=== PATIENT | female | born 1970 | race Caucasian/White ===

== ENCOUNTER → 2018-12-02 16:28 | Outpatient (CLI) | payer BC, SELFPAY ==
[2018-12-02 15:39] VITALS: BMI 25.4
[2018-12-02 17:39] LABS: Absolute Lymphocyte Count 1.74 X10^3/uL (0.83-4.51); Basophil# 0.04 X10^3/uL; Basophil% 0.5 % (0-1); Eosinophil# 0.07 X10^3/uL; Eosinophils% 0.8 % (0-5); Hematocrit 37.7 % (37-47); Hemoglobin 12.6 g/dL (12.0-15.0); Lymphocyte # 1.74 X10^3/ul (4.0); Lymphocyte % 20.9 % (19-41); Mean Corp Hgb Conc 33.4 g/dL (32-36); Mean Corpuscular Hgb 29.2 pg (27.0-32.0); Mean Corpuscular Volume 87.3 fL (81-99); Monocyte# 0.45 X10^3/uL; Monocyte% 5.4 % (0-10); NRBC Flagged by Analyzer 0 % (0-5); Neutrophil # 5.99 X10^3/uL (2.7-7.7); Platelet Count 250 K/mm3 (150-450); RBC Distribution Width CV 12.2 % (11.6-14.6); RBC Distribution Width SD 39.4 fl (35.1-43.9); Red Blood Count 4.32 M/mm3 (4.2-5.4); White Blood Count 8.3 K/mm3 (4.4-11.0)
[2018-12-05 08:13] LABS: HPV APTIMA, High Risk Negative (Negative)
== END ==
PROVIDERS: Family Provider Student in an Organized Health Care Education/Training Program; PCP Student in an Organized Health Care Education/Training Program; Referring Provider Nurse Practitioner Women's Health; Visit Provider Nurse Practitioner Women's Health
DX: Z12.4 Encounter for screening for malignant neoplasm of cervix (principal); R53.83 Other fatigue
CPT/HCPCS: 36415; 84443; 85025; 87624; 88175; G0145

== ENCOUNTER → 2018-12-06 12:54 | Outpatient (CLI) | payer BC, SELFPAY ==
[2018-12-02 15:39] VITALS: BMI 25.4
--- NOTE | 2018-12-06 12:55 | BI_ITS ---
MAMMOGRAPHY - BILATERAL SCREENING REASON FOR EXAM: Female, 48 years old. Routine annual screening examination. PERTINENT HISTORY: Mother with breast cancer. Grandmother with breast cancer. Aunt with breast cancer. TECHNIQUE: Digital bilateral breast burke (3D mammographic acquisition) in the CC and MLO projections. 2-D mediolateral oblique (MLO) and craniocaudad (CC) views of both breasts were obtained. CAD: Full Field Digital Mammography with Computer Added Detection was performed. COMPARISON: None. Baseline examination. FINDINGS: Breast Composition: The breasts are heterogeneously dense, which may obscure small masses. There are no dominant masses or suspicious calcifications. Benign appearing bilateral axillary. No other significant abnormalities are identified. BI/SCREEN MAMM (CAD) W/BURKE BILAT IMPRESSION: Negative screening mammogram. Yearly followup mammogram recommended. (A) ASSESSMENT CATEGORY: BIRADS Category 2: Benign. A letter regarding these results will be sent to the patient by the facility within 30 days. Approximately 10% of breast cancers are not detected by mammography. A normal mammogram should not delay biopsy of a clinically suspicious abnormality. [id number] Electronically Signed: Gary Navarrete, at 14:20 EDT , Service support ,
== END ==
PROVIDERS: Family Provider Student in an Organized Health Care Education/Training Program; PCP Student in an Organized Health Care Education/Training Program; Referring Provider Nurse Practitioner Women's Health; Visit Provider Nurse Practitioner Women's Health
DX: Z12.31 Encounter for screening mammogram for malignant neoplasm of breast (principal); R53.83 Other fatigue; Z80.3 Family history of malignant neoplasm of breast
CPT/HCPCS: 77063; 77067

== ENCOUNTER → 2019-02-24 | Outpatient (CLI) | payer BC, SELFPAY ==
[2019-02-24 14:40] VITALS: BMI 26.0
--- NOTE | 2019-02-24 15:15 | EMB_PTH ---
PATIENT: JEREMIE HUFF LOC: [facility] U#:[id number] AGE/SX: 48/F ROOM: RE02/24/[address]: MACIE Velasquez : 1970 BED: DIS: 02/24/2019 SPEC #: [id number] RECD: 02/24/19 16:18 STATUS: YARELI RENikia #: [id number] ZHAO: 02/24/19 15:[address]: Leslie Zaragoza NP DEPT: SURGICAL PATHOLOGY RECD BY: Ramiro Terry ENTERED: 02/25/19 08:01 SP TYPE: ENDOM BX/C MICHELLE DR: Dr. Ramirez Ayala DO Tissues: Endometrium, NOS Procedures: Surgery Specimen Level IV HEADER OPERATION: Endometrial biopsy PRE-OP DIAGNOSIS: Thickened endometrial lining TISSUE SUBMITTED: Endometrial lining MICROSCOPIC DIAGNOSIS Endometrial biopsy: Proliferative endometrium. SJ:malick 02/26/19 MICROSCOPIC DESCRIPTION Slides are reviewed. GROSS DESCRIPTION Received is one container labeled with the patient's name and not further designated. The specimen consists of multiple fragments of mayen hemorrhagic soft tissue that in aggregate measure 3 x 2.5 x 0.3 cm. The specimen is totally submitted in one cassette. / SJ:malick 02/25/19 TC:4 CPT: 77233
== END | disposition home or self-care (01) ==
LOC: LABSPEC 16:39
PROVIDERS: Family Provider Student in an Organized Health Care Education/Training Program; PCP Student in an Organized Health Care Education/Training Program; Referring Provider Nurse Practitioner Women's Health; Visit Provider Nurse Practitioner Women's Health
DX: R93.89 Abnormal findings on diagnostic imaging of other specified body structures (principal)
CPT/HCPCS: 88305

== ENCOUNTER → 2020-06-10 09:27 | Outpatient (CLI) | payer BC, SELFPAY ==
[2020-06-07 15:19] VITALS: BMI 27.3
--- NOTE | 2020-06-10 09:29 | BI_ITS ---
MAMMOGRAPHY - BILATERAL DIAGNOSTIC REASON FOR EXAM: Female, 50 years old. LT BREAST LUMP FOUND BY PATIENT RT BREAST INCREASED DENSITY UPPER LATERAL BREAST PERTINENT HISTORY: FAM HX MOTHER AGE 30S, MAT GMA AGE 50S , 2 MAT GRT AUNTS, SEVERAL 2ND MAT COUSINS GAINED 10# NO SX LT MOLE MARKED TECHNIQUE: Digital bilateral breast jimenez (3D mammographic acquisition) in the CC and MLO projections. 2-D mediolateral oblique (MLO) and craniocaudad (CC) views of both breasts were obtained. CAD: Full Field Digital Mammography with Computer Added Detection was performed. COMPARISON: None. FINDINGS: Breast Composition: The breasts are heterogeneously dense, which may obscure small masses. There is an asymmetric density in the upper outer quadrant of the right breast for which further evaluation by ultrasound would be recommended. There are no suspicious calcifications. No definite abnormality is seen at the site of palpable mass in the left breast. Further evaluation by ultrasound of the left breast is also recommended No other significant abnormalities are identified. BI/DIAG MAMM W/CAD, BILAT IMPRESSION: Further ultrasonographic evaluation recommended, as described above. (I) ASSESSMENT CATEGORY: BIRADS Category 0: Incomplete. Need additional imaging evaluation. A letter regarding these results will be sent to the patient by the facility within 30 days. Approximately 10% of breast cancers are not detected by mammography. A normal mammogram should not delay biopsy of a clinically suspicious abnormality. Electronically Signed: Kerri Lamar MD at 13:41 EST Tel , Service support ,
--- NOTE | 2020-06-10 09:29 | US_ITS ---
STUDY: ULTRASOUND BREAST - RIGHT REASON FOR EXAM: Female, 50 years old. Palpable lump in the right breast. TECHNIQUE: Axial and longitudinal images of the RIGHT breast were performed with a high resolution ultrasound transducer. # OF IMAGES: 54 COMPARISON: Comparison is made with prior mammogram dated 06/10/2020. FINDINGS: RIGHT Breast: The mammographic asymmetry corresponds to 2 adjacent subcentimeter cysts at the 9 o''clock position of the breast. The largest cyst measures 7 mm x 8 mm x 4 mm. IMPRESSION: The mammographic asymmetric density corresponds to multiple small subcentimeter cysts. ASSESSMENT CATEGORY: BIRADS Category 2: Benign. A letter regarding these results will be sent to the patient by the facility within 30 days. Electronically Signed: Gary Navarrete MD at 12:48 EST , Service support , STUDY: ULTRASOUND BREAST - LEFT REASON FOR EXAM: Female, 50 years old. Palpable lump left breast. TECHNIQUE: Axial and longitudinal images of the LEFT breast were performed with a high resolution ultrasound transducer. # OF IMAGES: 54 COMPARISON: Comparison is made with prior mammogram dated 06/10/2020. FINDINGS: LEFT Breast: Multiple small cysts are seen at the 2 o''clock position of the breast. The largest cyst measures 8 mm x 8 mm x 4 mm. US/Breast Limited Unilateral IMPRESSION: Multiple small cysts are seen at the 2 o''clock position of the breast. ASSESSMENT CATEGORY: BIRADS Category 2: Benign. A letter regarding these results will be sent to the patient by the facility within 30 days. Electronically Signed: Gary Navarrete MD at 12:49 EST , Service support ,
== END ==
PROVIDERS: PCP Student in an Organized Health Care Education/Training Program; Referring Provider Nurse Practitioner Women's Health; Visit Provider Nurse Practitioner Women's Health
DX: N63.21 Unspecified lump in the left breast, upper outer quadrant (principal); N60.11 Diffuse cystic mastopathy of right breast
CPT/HCPCS: 76642; 77062; 77066; G0279

== ENCOUNTER → 2020-07-12 14:21 | Outpatient (CLI) | payer BC, SELFPAY ==
[2020-07-12 13:39] VITALS: BMI 27.6
[2020-07-12 14:37] LABS: Absolute Lymphocyte Count 1.61 X10^3/uL (0.83-4.51); Absolute Neutrophil Count 4.4 X10^3/uL (2.0-7.7); Basophil# 0.04 X10^3/uL; Basophil% 0.6 % (0-1); Eosinophil# 0.05 X10^3/uL; Eosinophils% 0.8 % (0-5); Hematocrit 39.7 % (37-47); Hemoglobin 12.8 g/dL (12.0-15.0); Lymphocyte # 1.61 X10^3/ul (4.0); Lymphocyte % 24.5 % (19-41); Mean Corp Hgb Conc 32.2 g/dL (32-36); Mean Corpuscular Hgb 28.5 pg (27.0-32.0); Mean Corpuscular Volume 88.4 fL (81-99); Mean Platelet Vol. 11.6 fl (6.2-12.0); Monocyte# 0.45 X10^3/uL; Monocyte% 6.8 % (0-10); NRBC Flagged by Analyzer 0 % (0-5); Neutrophil # 4.42 X10^3/uL (2.7-7.7); Neutrophil % 67.1 % (47-70); Platelet Count 201 K/mm3 (150-450); RBC Distribution Width CV 12.4 % (11.6-14.6); RBC Distribution Width SD 40.2 fl (35.1-43.9); Red Blood Count 4.49 M/mm3 (4.2-5.4); White Blood Count 6.6 K/mm3 (4.4-11.0)
[2020-07-12 14:58] LABS: AST(SGOT) 20 U/L (15-37); Alanine Aminotransfer ALT/SGPT 36 U/L (13-56); Albumin, Serum 3.8 g/dL (3.2-5.0); Alkaline Phosphatase 77 U/L (45-117); Anion Gap 6 (5-15); BUN 11 mg/dL (7-18); BUN/Creat Ratio 14.9 RATIO (10-20); Calcium,Total 9.5 mg/dL (8.5-10.1); Chloride 107 mmol/L (98-107); Creatinine, Serum 0.74 mg/dL (0.55-1.02); EST Glomerular Filtration Rate 88 mL/min (>60); Est Glom Filt Rate - Afr Amer 107 mL/min (>60); Globulin 3.7 g/dL (2.2-4.2); Glucose 101 mg/dL (74-106); Potassium 3.9 mmol/L (3.5-5.1); Protein, Total 7.5 g/dL (6.4-8.2); Sodium Level 140 mmol/L (136-145)
[2020-07-14 15:33] LABS: Cancer Antigen 125 27.7 U/mL (0.0-38.1); Carcinoembryonic Antigen 1.5 ng/mL (0.0-4.7)
== END ==
PROVIDERS: PCP Student in an Organized Health Care Education/Training Program; Referring Provider Obstetrics & Gynecology; Visit Provider Obstetrics & Gynecology
DX: R19.00 Intra-abdominal and pelvic swelling, mass and lump, unspecified site (principal); R10.2 Pelvic and perineal pain
CPT/HCPCS: 36415; 80053; 82378; 85025; 86304; 87077; 87086; 87088; 87186

== ENCOUNTER → 2020-07-20 12:24 | Outpatient (CLI) | payer BC, SELFPAY ==
[2020-07-12 13:39] VITALS: BMI 27.6
--- NOTE | 2020-07-20 12:26 | CT_ITS ---
STUDY: CT ABDOMEN AND PELVIS WITHOUT CONTRAST REASON FOR EXAM: Female, 50 years old. Abdominal mass. Right flank pain. RADIATION DOSAGE (If Supplied By Facility): CTDIvol = ( 8.24 ) mGy, DLP = ( 382.72 ) mGycm TECHNIQUE: Transaxial images were obtained from the dome of the diaphragm to the symphysis pubis without oral contrast, and without intravenous contrast. Sagittal and coronal images were reconstructed. Individualized dose optimization techniques were used for this CT. COMPARISON: None. FINDINGS: The visualized lung bases are unremarkable. The visualized portions of the heart are within normal limits. Normal liver. The gallbladder is contracted. Normal spleen. Normal pancreas. Normal bilateral adrenal glands. Normal right kidney. Normal left kidney. There is a small hiatal hernia. Normal small intestine. Normal colon. There are surgical clips in the region of the appendix consistent with a prior appendectomy. Normal abdominal aorta. Normal inferior vena cava. Normal retroperitoneum. Normal urinary bladder. Enlarged fibroid uterus. Normal abdominal wall. Normal osseous structures. CT/Abdomen/Pelvis without Cont IMPRESSION: Status post appendectomy. Enlarged fibroid uterus. Electronically Signed: Gary Navarrete MD at 13:34 EDT , Service support ,
== END ==
LOC: CT 12:25
PROVIDERS: PCP Student in an Organized Health Care Education/Training Program; Referring Provider Obstetrics & Gynecology; Visit Provider Obstetrics & Gynecology
DX: D25.9 Leiomyoma of uterus, unspecified (principal)
CPT/HCPCS: 74176

== ENCOUNTER 2020-12-30 03:35 | Emergency (ER) | payer BC, SELFPAY ==
[2020-12-30 03:36] VITALS: BP 131/69; PULSE 92; RESP 18; TEMP 36.3; O2SAT 95; BMI 26.4
--- NOTE | 2020-12-30 03:54 | EX.ED.DYSGE1 ---
HPI History of Present Illness Chief Complaint: General Illness Informant: patient and spouse/S.O. Onset/Context/Timing Onset: Days (8) Context: Gradual Onset Timing: Continuous Quality: weak and achy Location: all over Current Severity: Severe Maximum Severity: Severe Worsened by: nothing Relieved by: nothing Associated Symptoms Associated Symptoms: rhinorrhea, congestion, cough Associated Symptoms ED: cough Narrative Narrative: Patient has been feeling very poorly for the past 8 days. She was not vaccinated against Covid, and has had no contact with anyone with Covid that she knows of but presents during a significant uptick in the pandemic with the delta variant. She has had no dyspnea. She has had some diarrhea off and on, tonight she had some lower sharp and crampy abdominal pain followed by diarrhea and resolution of the pain. Denies any loss of taste or smell. Recent Illness/Hospitalization: No [facility] Medical History (Updated 12/30/20 @ 04:[address] Alonzo Schulz MD) Breast mass, left Migraines Home Medications albuterol sulfate 1 - 2 puff INHALATION Q4H PRN PRN #1 inhaler 06/14/16 [Rx Last Taken Unknown] multivitamin 1 tab PO DAILY 02/24/19 [History Last Taken Unknown] alprazolam 0.25 mg tablet 0.125 mg PO DAILY PRN #30 tab 07/15/20 [Rx Last Taken Unknown] Allergy/AdvReac Type Severity Reaction Status Date / Time Penicillins Allergy Swelling Verified 12/30/20 03:41 sulfamethoxazole Allergy Swelling Verified 12/30/20 03:41 [From Bactrim] trimethoprim [From Bactrim] Allergy Swelling Verified 12/30/20 03:41 duloxetine [From Cymbalta] AdvReac Severe difficulty Verified 12/30/20 03:41 breathing escitalopram [From Lexapro] AdvReac Severe anaphalxis Verified 12/30/20 03:41 sertraline [From Zoloft] AdvReac Severe anaphlaxis Verified 12/30/20 03:41 Iodinated Contrast Media AdvReac Unknown unknown Verified 12/30/20 03:41 levofloxacin [From Levaquin] AdvReac Unknown unknown Verified 12/30/20 03:41 moxifloxacin [From Avelox] AdvReac Unknown unknown Verified 12/30/20 03:41 tetracycline AdvReac Unknown unknown Verified 12/30/20 03:41 Family History Mother Cancer Leukemia Grandfather Diabetes Hypertension Heart disease Brother Myocardial infarction Hypertension History of high cholesterol Brother Bipolar 1 disorder Surgical History History of appendectomy Social History number of children: 3 current occupational status: unemployed Smoking Status: Never smoker alcohol intake: never substance use type: does not use seatbelt use: always do you feel safe at home: Yes additional social history: [employer] ROS ROS ED Constitutional Constitutional ED: Reports anorexia, body ache(s), chills, fatigue, headache(s) and malaise; Denies fever(s) Eyes Eyes: Denies change in vision or diplopia ENT ENT ED: Denies loss taste/smell, rhinorrhea or sore throat Cardiovascular Cardiovascular: Denies chest pain or palpitations Respiratory/Chest Respiratory/Chest: Reports cough; Denies dyspnea or dyspnea on exertion Gastrointestinal Gastrointestinal: Reports as per HPI, abdominal pain and diarrhea; Denies nausea or vomiting Genitourinary Genitourinary ED: Denies dysuria or hematuria Musculoskeletal Musculoskeletal: Reports myalgias; Denies back pain or neck pain Integumentary Denies abscess or rash Neurologic Neurologic: Reports headache(s); Denies paresthesias or weakness Psychiatric Psychiatric: Denies anxiety or suicidal thoughts EXAM Physical Exam Const Vital Signs: 12/30/20 03:36 Temperature 97.3 F L Temperature Source Temporal Pulse Rate 92 Respiratory Rate 18 Blood Pressure 131/69 H Blood Pressure Mean 89 Pulse Ox 95 Oxygen Delivery Method Room Air Positive well nourished and well developed Constitutional Narrative: Malaised-appearing, no distress General Appearance ED: well developed and NAD HEENT Reports moist mucous membranes normocephalic and atraumatic Eyes PERRL and EOMs intact bilaterally Neck full ROM and supple Resp normal respiratory effort and clear to auscultation bilaterally Cardio regular rate, regular rhythm and no murmurs Rate: Negative for tachycardic GI non-tender and non-distended Auscultation: normoactive bowel sounds Palpation: soft Back/Spine no CVA tenderness General Back: other FROM Extremity normal to inspection and no calf tenderness General Extremety ED: Negative for edema, pulses abnormal or tenderness General Extremity: Negative for edema or pulses abnormal Neuro oriented x3, CN's II-XII intact bilaterally and no sensory deficits noted Sensorium / Orientation: awake and alert Motor Exam: strength 5/5 throughout Skin no rashes or lesions noted and no wounds MDM MDM MDM Narrative Medical decision making narrative: Rapid Covid test was sent and is positive which I believe is a true positive. Her chest x-ray is normal on my interpretation, 1 view. She requested an IV for fluids, which was given to provide symptomatic treatment, in addition to IV Toradol, Reglan more for the headache than nausea. Her vital signs are stable, she is not hypoxic. She does not have dyspnea or chest pain except for some soreness in her ribs with coughing, I do not think she needs to be evaluated for pulmonary embolus at this time. I discussed checking her pulse oximetry at home and reasons to return. Since she does not have any signs of Covid pneumonia hopefully she will be able to ride this out without complications that would indicate hospitalization, which is not indicated now nor are steroids, and she does not meet criteria for monoclonal antibody infusion. Lab Data Attestation: I reviewed the patient's lab results. Radiography Chest X-Ray - ED: 1 View, Read by ED Physician, No Acute Disease and No Infiltrates Discharge Plan Triage Chief Complaint: General Illness ED Provider: Alonzo Schulz Dx/Rx/DC Orders Clinical Impression: COVID-19 Instructions: Coronavirus Disease 2019 (COVID-19): Caring for Yourself or Others Prescriptions: No Action multivitamin [Daily Multi-Vitamin] Tablet 1 tab PO DAILY RF: 0 albuterol sulfate 1 INHALER inhaler 1 - 2 puff inhalation Q4H PRN PRN (Reason: Wheezing) Qty: 1 RF: 0 alprazolam [Xanax] 0.25 mg tablet 0.125 mg PO DAILY PRN (Reason: anxiety) Qty: 30 RF: 0 Primary Care Provider: Ramirez Ayala Referrals: Ramirez Ayala DO [Primary Care Provider] - As Needed Activity Restrictions/Additional Instructions: Try to get a home portable pulse oximeter and closely watch her oxygen levels periodically. If you stay below 90% for more than a minute or so, and/or you are feeling like your breathing is getting worse, return to the emergency department for further evaluation. Disposition Disposition: Home, Self Care
[2020-12-30] MEDS: 0.9% Normal Saline 1,000 ML 999 ML IV (03:59)
[2020-12-30] MEDS: Metoclopramide 10 MG/2 ML Vial 5 MG IV (03:59)
[2020-12-30] MEDS: Ketorolac 30 MG/ML Syringe IV (04:02)
--- NOTE | 2020-12-30 04:03 | RAD_ITS ---
STUDY: X-RAY CHEST REASON FOR EXAM: Female, 50 years old. cough TECHNIQUE: Single frontal view of the chest. COMPARISON: None. FINDINGS: There is no pneumothorax or pleural effusion. Vague opacity LEFT lower lung zone. Normal size heart. Normal mediastinum and soraida. Normal visualized pulmonary arteries. Normal visualized aortic arch and descending thoracic aorta. Normal visualized thoracic spine. Normal visualized ribs, clavicles, and shoulders. There is no demonstrated abnormality of the visualized soft tissue structures of the upper abdomen. RAD/Chest 1 View (Portable) IMPRESSION: Vague opacity LEFT lower lung zone. This could represent infectious inflammatory process. Underlying mass cannot be totally excluded. Overlying summation of shadows could also be considered. This can be further evaluated with dedicated PA and lateral radiograph the chest versus follow-up CT scan. Electronically Signed: Bruno Tucker MD at 4:35 EDT Tel , Service support ,
[2020-12-30 04:57] VITALS: BP 130/67; PULSE 88; RESP 18; O2SAT 95
== END 2020-12-30 04:57 | disposition home or self-care (01) ==
LOC: ED 04:52
PROVIDERS: Emergency Provider Emergency Medicine; PCP Student in an Organized Health Care Education/Training Program
DX: U07.1 COVID-19 (principal); Z79.899 Other long term (current) drug therapy
CPT/HCPCS: 71045; 87426; 96374; 96375; 99282; J7030; A4216

== ENCOUNTER → 2021-09-13 | Outpatient (CLI) | payer BC, SELFPAY ==
--- NOTE | 2021-09-13 16:14 | BI_ITS ---
MAMMOGRAPHY - BILATERAL SCREENING REASON FOR EXAM: Female, 51 years old. Routine annual screening examination. PERTINENT HISTORY: Mother with breast cancer. Grandmother with breast cancer. TECHNIQUE: Digital bilateral breast burke (3D mammographic acquisition) in the CC and MLO projections. 2-D mediolateral oblique (MLO) and craniocaudad (CC) views of both breasts were obtained. CAD: Full Field Digital Mammography with Computer Added Detection was performed. COMPARISON: Comparison is made with prior examination dated 12/06/2018 and 06/10/2020. FINDINGS: Breast Composition: The breasts are heterogeneously dense, which may obscure small masses. There are no dominant masses or suspicious calcifications. No other significant abnormalities are identified. There has been no significant change since the prior study. BI/SCRN MAMM (CAD)W/BURKE BILAT IMPRESSION: Stable bilateral screening mammogram. Yearly follow-up mammogram recommended. (A) ASSESSMENT CATEGORY: BIRADS Category 1: Negative. A letter regarding these results will be sent to the patient by the facility within 30 days. Approximately 10% of breast cancers are not detected by mammography. A normal mammogram should not delay biopsy of a clinically suspicious abnormality. [id number] Electronically Signed: Gary Navarrete MD at 8:20 EDT ,
== END | disposition home or self-care (01) ==
LOC: OPBI 09-14 06:57
PROVIDERS: PCP Student in an Organized Health Care Education/Training Program; Visit Provider Surgery
DX: Z12.31 Encounter for screening mammogram for malignant neoplasm of breast (principal); Z80.3 Family history of malignant neoplasm of breast
CPT/HCPCS: 77063; 77067

== ENCOUNTER 2023-03-08 18:26 | Emergency (ER) | payer BC, SELFPAY ==
[2023-03-08 18:28] VITALS: BP 127/75; PULSE 71; RESP 18; TEMP 35.8; O2SAT 99; BMI 26.4
== END 2023-03-08 18:35 | disposition left against medical advice (07) ==
LOC: ED 19:11
PROVIDERS: PCP Student in an Organized Health Care Education/Training Program
DX: R69 Illness, unspecified (principal); Z53.21 Procedure and treatment not carried out due to patient leaving prior to being seen by health care provider

== ENCOUNTER → 2023-03-08 | Outpatient (CLI) | payer BC, SELFPAY ==
--- NOTE | 2023-03-08 17:53 | US_ITS ---
INDICATION: AUB EXAMINATION: US Pelvis Non OB Complete With Transvaginal Imaging TECHNIQUE: Transabdominal and transvaginal pelvic ultrasound was performed. Grayscale, spectral waveform, and color flow Doppler evaluation of the adnexa. COMPARISON: None. FINDINGS: UTERUS: Anteverted. The uterus measures 9.3 x 6.7 x 5.6 cm. There are multiple uterine fibroids. The endometrial stripe measures 1.3 cm in AP diameter which is within normal limits. There are multiple nabothian cysts. RIGHT OVARY: Measures 2.2 x 1.8 x 1 cm. Non-enlarged, normal echogenicity. There is normal arterial inflow and venous outflow present in the right ovary. LEFT OVARY: Not visualized. FREE FLUID: None. 7 mm anechoic well-circumscribed cyst posterior to the cervix. US/Pelvic w/ Transvaginal IMPRESSION: Multi fibroid uterus. 7 mm anechoic well-circumscribed cyst posterior to the cervix of unknown etiology. Electronically Signed: Souleymane Hutson MD at 21:29 EST ,
== END | disposition home or self-care (01) ==
LOC: US 17:51
PROVIDERS: PCP Student in an Organized Health Care Education/Training Program; Referring Provider Obstetrics & Gynecology; Visit Provider Obstetrics & Gynecology
DX: N93.9 Abnormal uterine and vaginal bleeding, unspecified (principal)
CPT/HCPCS: 76830; 76856

== ENCOUNTER → 2023-03-13 | Outpatient (CLI) | payer BC, SELFPAY ==
[2023-03-13 17:09] LABS: Absolute Lymphocyte Count 2.04 X10^3/uL (0.83-4.51); Absolute Neutrophil Count 4.1 X10^3/uL (2.0-7.7); Basophil# 0.04 X10^3/uL; Basophil% 0.6 % (0-1); Eosinophils% 1.5 % (0-5); Hematocrit 35.7 % (37-47); Hemoglobin 11.5 g/dL (12.0-15.0); Lymphocyte # 2.04 X10^3/ul (0.83-4.51); Lymphocyte % 30.3 % (19-41); Mean Corp Hgb Conc 32.2 g/dL (32-36); Mean Corpuscular Hgb 28.8 pg (27.0-32.0); Mean Corpuscular Volume 89.3 fL (81-99); Mean Platelet Vol. 11.8 fl (6.2-12.0); Monocyte# 0.47 X10^3/uL; NRBC Flagged by Analyzer 0 % (0-5); Neutrophil # 4.06 X10^3/uL (2.7-7.7); Neutrophil % 60.3 % (47-70); Platelet Count 243 K/mm3 (150-450); RBC Distribution Width CV 12.7 % (11.6-14.6); RBC Distribution Width SD 42.1 fl (35.1-43.9); White Blood Count 6.7 K/mm3 (4.4-11.0)
== END | disposition home or self-care (01) ==
LOC: LAB 16:15
PROVIDERS: Nurse Practitioner Women's Health; PCP Student in an Organized Health Care Education/Training Program; Visit Provider Obstetrics & Gynecology
DX: N92.0 Excessive and frequent menstruation with regular cycle (principal)
CPT/HCPCS: 36415; 85025

== ENCOUNTER 2023-09-07 20:00 | Emergency (ER) | payer BC, SELFPAY ==
[2023-09-07 20:02] VITALS: BP 148/68; PULSE 101; RESP 16; TEMP 36.6; O2SAT 96; BMI 27.6
[2023-09-07 22:01] VITALS: BP 136/88; PULSE 95; RESP 16; O2SAT 98
--- NOTE | 2023-09-07 22:13 | US_ITS ---
EXAM: US PELVIS TRANSVAGINAL CLINICAL INDICATION: menorhagia TECHNIQUE: Transvaginal pelvic ultrasound was performed with grayscale and color Doppler imaging. Transvaginal imaging was used for better evaluation of the endometrium and adnexa. COMPARISON: No relevant prior studies available. FINDINGS: UTERUS/CERVIX: Uterus measures 9.7 x 7.2 x 6.9 cm with endometrial complex thickness of 11 mm. Anteverted uterus with no uterine masses. There is a myometrial uterine fibroid identified measuring up to 4.1 cm. Nabothian cysts are identified. No IUD identified. RIGHT OVARY: Bilateral ovaries are not visualized. LEFT OVARY: See above. FREE FLUID: No adnexal masses or free fluid. BLADDER: Empty bladder which cannot be evaluated with this probe. US/Transvaginal Non- IMPRESSION: 1. Fibroid uterus. 2. Ovaries are not visualized. 3. No adnexal masses or free fluid. Electronically Signed: Mane Maria MD at 0:33 EDT ,
--- NOTE | 2023-09-07 22:17 | EDS_ITS ---
HPI History of Present Illness Chief Complaint: Abd Pain Informant: patient Onset/Context/Timing Onset: Today Narrative Narrative: Patient presents secondary to heavy vaginal bleeding and severe cramping. She is a history of fibroid uterus and over the past several months has had heavier periods, although patient states she never had pain like today. She was seen at [facility] emergency room in [place] earlier today. She complained of some URI symptoms for the past 2 days and they diagnosed her with a sinus infection, giving her doxycycline and Bentyl for abdominal pain. Patient states her pain is not controlled. She follows with Dr. Wilson for her [employer] care. 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 [facility] Medical History (Updated 09/08/23 @ 01:[address] Dorothea Bess MD) Abdominal mass Acid reflux Anxiety Breast mass, left Migraines Home Medications albuterol sulfate 90 mcg/actuation aerosol inhaler 1 - 2 puff inhalation Q4H PRN PRN Wheezing ##1 06/14/16 [Rx Last Taken Unknown] multivitamin (Daily Multi-Vitamin tablet) 1 tab PO DAILY 02/24/19 [History Last Taken Unknown] alprazolam 0.25 mg tablet (Xanax) 0.125 mg (1/2 x 0.25 mg) PO DAILY PRN anxiety #30 tabs 07/15/20 [Rx Last Taken Unknown] hydrocodone-acetaminophen 5-325mg 5mg-325mg 1 tab PO Q6H PRN PRN Pain 3 days #10 TABLETS 09/08/23 [Rx Last Taken Unknown] Allergy/AdvReac Type Severity Reaction Status Date / Time Penicillins Allergy Swelling Verified 09/07/23 20:05 prednisone Allergy Hives Verified 09/07/23 20:05 sulfamethoxazole Allergy Swelling Verified 09/07/23 20:05 [From Bactrim] trimethoprim [From Bactrim] Allergy Swelling Verified 09/07/23 20:05 duloxetine [From Cymbalta] AdvReac Severe difficulty Verified 09/07/23 20:05 breathing escitalopram [From Lexapro] AdvReac Severe anaphalxis Verified 09/07/23 20:05 sertraline [From Zoloft] AdvReac Severe anaphlaxis Verified 09/07/23 20:05 Iodinated Contrast Media AdvReac Unknown unknown Verified 09/07/23 20:05 levofloxacin [From Levaquin] AdvReac Unknown unknown Verified 09/07/23 20:05 moxifloxacin [From Avelox] AdvReac Unknown unknown Verified 09/07/23 20:05 tetracycline AdvReac Unknown unknown Verified 09/07/23 20:05 Family History Mother Cancer Leukemia Grandfather Diabetes Hypertension Heart disease Brother Myocardial infarction Hypertension History of high cholesterol Brother Bipolar 1 disorder Surgical History History of appendectomy Social History number of children: 3 current occupational status: unemployed Smoking Status: Never smoker alcohol intake: never substance use type: does not use seatbelt use: always do you feel safe at home: Yes additional social history: [employer] ROS ROS ED Constitutional Constitutional ED: Denies chills or fever(s) Eyes Eyes: Denies discharge from eye(s) ENT ENT ED: Reports rhinorrhea; Denies discharge from eye(s) or sore throat Cardiovascular Cardiovascular: Denies chest pain or palpitations Respiratory/Chest Respiratory/Chest: Denies cough or dyspnea Gastrointestinal Gastrointestinal: Reports abdominal pain; Denies diarrhea, nausea or vomiting Genitourinary Genitourinary ED: Reports urinary frequency; Denies dysuria Musculoskeletal Musculoskeletal: Denies back pain or extremity pain Integumentary Denies Abrasions or rash Neurologic Neurologic: Reports headache(s); Denies weakness Psychiatric Psychiatric: Denies anxiety or depression Allergic/Immunologic Allergic/Immunologic ED: Denies lip swelling or urticaria EXAM Physical Exam Const Vital Signs: 09/07/23 20:02 09/07/23 22:01 09/08/23 00:00 Temperature 98 F Temperature Source Temporal Pulse Rate 101 H 95 81 Respiratory Rate 16 16 16 Blood Pressure 148/68 H 136/88 H 133/86 H Blood Pressure Mean 94 104 101 Pulse Ox 96 98 98 Oxygen Delivery Method Room Air Room Air Room Air Positive well nourished and well developed General Appearance ED: well developed HEENT Reports moist mucous membranes Eyes EOMs intact bilaterally Chest Wall inspection of chest normal and palpation of chest normal Resp normal respiratory effort and clear to auscultation bilaterally Cardio regular rate and regular rhythm GI GI Narrative: Abdomen soft with mild tenderness in the lower abdomen. No guarding or rebound. Hypoactive but present bowel sounds noted throughout. Extremity normal to inspection Neuro oriented x3 and no sensory deficits noted Motor Exam: strength 5/5 throughout Psych mental status grossly normal Skin no rashes or lesions noted MDM MDM MDM Narrative Medical decision making narrative: IV fluid initiated with Toradol, Reglan, and Benadryl for her headache. She states this typically will help her abdominal cramping as well. Labwork obtained to evaluate for leukocytosis, anemia, and electrolyte derangement. Urinalysis obtained to evaluate for infection/hematuria. Pelvic ultrasound ob tained to evaluate uterine lining. History & Record Review Discussion w/independent historian: Patient Lab Data Attestation: I reviewed the patient's lab results. Labs: Laboratory Results - last 24 hr 09/07/23 23:08 WBC 6.2 RBC 3.99 L Hgb 11.3 L Hct 35.4 L MCV 88.7 MCH 28.3 MCHC 31.9 L RDW Std Deviation 41.4 RDW Coeff of Cosme 12.7 Plt Count 235 MPV 11.8 Immature Gran % (Auto) 0.200 Neut % (Auto) 69.3 Lymph % (Auto) 15.7 L Greer % (Auto) 13.4 H Eos % (Auto) 0.8 Baso % (Auto) 0.6 Absolute Neuts (auto) 4.3 Absolute Lymphs (auto) 0.97 Nucleated RBC % 0 Sodium 140 Potassium 3.6 Chloride 108 H Carbon Dioxide 28.0 Anion Gap 4 L BUN 10 Creatinine 0.58 Estim Creat Clear Calc 116.77 Est GFR (MDRD) Af Amer 139 Est GFR (MDRD) Non-Af 115 BUN/Creatinine Ratio 17.2 Glucose 106 Calcium 9.0 Serum , Qual NEGATIVE Radiography Diagnostic Testing: Clinical Impression(s) from Imaging Studies Transvaginal US 09/07/23 22:13 IMPRESSION: 1. Fibroid uterus. 2. Ovaries are not visualized. 3. No adnexal masses or free fluid. Electronically Signed: Mane Maria MD at 0:33 EDT , Treatment and Re-Evaluation :: CBC was a white count of 6.2 with a hemoglobin 11.3. She states her hemoglobin earlier today was 11.0. Chemistry studies are unremarkable. test is negative. Pelvic ultrasound reveals a fibroid uterus. Ovaries not visualized. No adnexal mass or free fluid. Her endometrial stripe today is 11 mm. On repeat evaluation she is resting more comfortably. I will write her a short course of [place] to have on hand. 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 Return instructions given. Discharge Plan Triage Chief Complaint: Abd Pain Other Complaint: Headache Vag Bleeding ED Provider: Dorothea Bess Dx/Rx/DC Orders Clinical Impression: Headache, Abdominal pain, Fibroid uterus, Menorrhagia Instructions: ED Headache Unspecified, ED Heavy Menstrual Bleeding, ED Uterine Fibroids Prescriptions: New hydrocodone-acetaminophen 5-325 mg tablet 1 tab PO Q6H PRN PRN (Reason: Pain) 3 Days Qty: 10 0RF No Action multivitamin [Daily Multi-Vitamin] Tablet 1 tab PO DAILY albuterol sulfate 1 INHALER inhaler 1 - 2 puff inhalation Q4H PRN PRN (Reason: Wheezing) Qty: 1 0RF alprazolam [Xanax] 0.25 mg tablet 0.125 mg PO DAILY PRN (Reason: anxiety) Qty: 30 0RF Primary Care Provider: Ramirez Ayala Referrals: Ramirez Ayala DO [Primary Care Provider] - Mariola Wilson MD [Med Staff - Active Staff] - As soon as possible Disposition Disposition: Home, Self Care
[2023-09-07] MEDS: Metoclopramide 10 MG/2 ML Vial IV (23:02)
[2023-09-07] MEDS: DiphenhydrAMINE 50 MG/ML Syringe 25 MG IV (23:02)
[2023-09-07] MEDS: Ketorolac 30 MG/ML Syringe IV (23:02)
[2023-09-07] MEDS: 0.9% Normal Saline (1000mL) 1,000 ML 1000 ML IV (23:03)
[2023-09-07 23:22] LABS: Absolute Lymphocyte Count 0.97 X10^3/uL (0.83-4.51); Absolute Neutrophil Count 4.3 X10^3/uL (2.0-7.7); Basophil# 0.04 X10^3/uL; Basophil% 0.6 % (0-1); Eosinophil# 0.05 X10^3/uL; Eosinophils% 0.8 % (0-5); Hematocrit 35.4 % (37-47); Hemoglobin 11.3 g/dL (12.0-15.0); Lymphocyte # 0.97 X10^3/ul (0.83-4.51); Lymphocyte % 15.7 % (19-41); Mean Corp Hgb Conc 31.9 g/dL (32-36); Mean Corpuscular Hgb 28.3 pg (27.0-32.0); Mean Corpuscular Volume 88.7 fL (81-99); Mean Platelet Vol. 11.8 fl (6.2-12.0); Monocyte# 0.83 X10^3/uL; Monocyte% 13.4 % (0-10); NRBC Flagged by Analyzer 0 % (0-5); Neutrophil # 4.28 X10^3/uL (2.7-7.7); Neutrophil % 69.3 % (47-70); Platelet Count 235 K/mm3 (150-450); RBC Distribution Width CV 12.7 % (11.6-14.6); RBC Distribution Width SD 41.4 fl (35.1-43.9); Red Blood Count 3.99 M/mm3 (4.2-5.4); White Blood Count 6.2 K/mm3 (4.4-11.0)
[2023-09-07 23:29] LABS: Internal QC Validated? YES +Cl - CLEAR BKGD; Pregnancy, Serum, hCG Quali. NEGATIVE Negative
[2023-09-07 23:38] LABS: Anion Gap 4 (5-15); BUN 10 mg/dL (7-18); BUN/Creat Ratio 17.2 RATIO (10-20); Chloride 108 mmol/L (98-107); Creatinine, Serum 0.58 mg/dL (0.55-1.02); EST Glomerular Filtration Rate 115 mL/min (>60); Est Glom Filt Rate - Afr Amer 139 mL/min (>60); Estimated Creatinine Clearance 116.77 ml/min; Glucose 106 mg/dL (74-106); Potassium 3.6 mmol/L (3.5-5.1); Sodium Level 140 mmol/L (136-145)
[2023-09-08] VITALS: BP 133/86; PULSE 81; RESP 16; O2SAT 98
[2023-09-08 01:28] VITALS: BP 135/82; PULSE 66; RESP 16; TEMP 36.7; O2SAT 100
== END 2023-09-08 01:29 | disposition home or self-care (01) ==
PROVIDERS: Emergency Provider Emergency Medicine; PCP Student in an Organized Health Care Education/Training Program; Visit Provider Emergency Medicine
DX: D25.9 Leiomyoma of uterus, unspecified (principal); N92.0 Excessive and frequent menstruation with regular cycle; N93.9 Abnormal uterine and vaginal bleeding, unspecified; K21.9 Gastro-esophageal reflux disease without esophagitis; Z90.49 Acquired absence of other specified parts of digestive tract; R35.0 Frequency of micturition; R51.9 Headache, unspecified; R10.9 Unspecified abdominal pain
CPT/HCPCS: 76830; 80048; 84703; 85025; 96361; 96374; 96375; 99284; J7030